=== PATIENT | female | born 1965 | race Caucasian/White ===

== ENCOUNTER 2017-12-05 10:21 | Emergency (ER) | payer MEDICARE, OTHER ==
[2017-12-05] MEDS: ONDANSETRON 4 MG INJ IV (10:59)
[2017-12-05] MEDS: HYDROmorphONE 1 MG/5 ML IV SYRINGE IV (11:00)
[2017-12-05] MEDS: LORAZEPAM 2 MG INJ IV (11:00)
[2017-12-05] MEDS: TOPIRAMATE 100 MG TAB PO (12:34)
== END 2017-12-05 12:35 | disposition home or self-care (01) ==
LOC: E/R 10:21
DX: M25.511 Pain in right shoulder (principal); F41.1 Generalized anxiety disorder; R40.2142 Coma scale, eyes open, spontaneous, at arrival to emergency department; R40.2252 Coma scale, best verbal response, oriented, at arrival to emergency department; R40.2362 Coma scale, best motor response, obeys commands, at arrival to emergency department
CPT/HCPCS: 73030; 73030-RT; 96374; 96375; 99284-25